=== PATIENT | male | born 1970 ===

== ENCOUNTER 2017-03-05 00:31 | Inpatient (IN) | payer MEDICAID, OTHER ==
[2017-03-05 00:39] VITALS: O2SAT 97; BMI 25.5
--- NOTE | 2017-03-05 00:53 | ED PDOC ---
Psych Transfer Clearance - Clearance Statement Clearance Statement: Reviewed vital signs, lab results and transfer papers. Patient clinically stable for psychiatric admission.
[2017-03-05] MEDS ORDERED: DiphenhydrAMINE 50 mg/ml Inj IM PRN (01:32)
[2017-03-05] MEDS ORDERED: Alum-Mag Hydrox-Simethicone Susp (30 mL) PO PRN (01:32)
[2017-03-05] MEDS ORDERED: Magnesium Hydroxide Susp 30 ml UD PO PRN (01:32)
[2017-03-05 07:14] LABS: CHOLESTEROL 221 mg/dL (0-199)
[2017-03-05] MEDS ORDERED: Trimethobenzamide 200 mg/2 mL Inj IM ONE (10:15)
[2017-03-05 11:37] LABS: T4 12.1 ug/dl (5.5-11.0)
[2017-03-05 11:50] LABS: THYROID STIMULATING HORMONE 1.48 mIU/ML (0.46-4.68)
[2017-03-05] MEDS ORDERED: Trimethobenzamide 200 mg/2 mL Inj IM PRN (13:39)
--- NOTE | 2017-03-05 13:44 | PCM.PSYCH ---
Initial Psychiatric Evaluation - Initial Psychiatric Evaluation Type of Admission: Voluntary Legal Status: Capacity Chief Complaint (in patient's own words): i just need detox Patient's Reaction to Hospitalization: cooperative History of Present Illness and Precipitating Events: pt with opioid dependence. frequently stays at [facility]. he has been using 15-20 bags of heroin iv for for last few weeks. he states he called the 800 number looking to come in for detox. he states when they didn't have a detox bed "i lied so i could come somewhere to get detoxed" he states he is not suicidal and not depressed. he does not want referral to in rehab as he states he needs to return to his job. Current Medications: Active Medications Generic Name Dose Route Start Last Admin Trade Name Freq PRN Reason Stop Dose Admin Acetaminophen 650 mg 03/05/17 01:32 Tylenol 325mg Tab PO Q4 PRN Pain, moderate (4-7) Al Hydrox/Mg Hydrox/Simethicone 30 ml 03/05/17 01:32 Maalox Plus 30 Ml PO Q4 PRN Dyspepsia Clonidine HCl 0.1 mg 03/05/17 16:00 Catapres PO Q6 PUJA Cyclobenzaprine HCl 10 mg 03/05/17 01:38 03/05/17 12:07 Flexeril PO 10 mg Q6 PRN Administration Muscle spasm Diphenhydramine HCl 50 mg 03/05/17 01:32 Benadryl IM Q6 PRN Extrapyramidal S/S Unable PO Diphenhydramine HCl 50 mg 03/05/17 01:32 Benadryl PO Q6 PRN Extrapyramidal Symptoms Folic Acid 1 mg 03/05/17 09:00 03/05/17 12:55 Folic Acid PO Not Given DAILY [facility] Ibuprofen 600 mg 03/05/17 01:58 03/05/17 08:17 Motrin Tab PO 600 mg Q6 PRN Administration Pain, moderate (4-7) Loperamide HCl 2 mg 03/05/17 01:55 Imodium PO QID PRN Diarrhea Lorazepam 2 mg 03/05/17 01:32 Ativan IM Q4 PRN Anxiety/Agitation,Unable PO Lorazepam 2 mg 03/05/17 01:32 Ativan PO Q4 PRN Anxiety/Agitation Lorazepam 1 mg 03/05/17 09:00 03/05/17 12:53 Ativan PO 1 mg TID PUJA Administration Magnesium Hydroxide 30 ml 03/05/17 01:32 Milk Of Magnesia PO HS PRN Constipation Thiamine HCl 100 mg 03/05/17 09:00 03/05/17 12:55 Vitamin B1 Tab PO Not Given DAILY PUJA Trimethobenzamide HCl 200 mg 03/05/17 13:39 Tigan IM Q6 PRN Nausea/Vomiting Past Psychiatric History - Past Psychiatric History Previous Treatment History: Inpatient Prior Professional Help: multiple past admissions to [facility] History of Abuse: declines to discuss History of ETOH/Drug Use: states he uses up to 7 mg xanax, methodone, heroin as per hpi. denies other substance use. History of Family Illness: denies Pertinent Medical Hx (Current Medical&Sleep Prob, Allergies): Allergies Allergy/AdvReac Type Severity Reaction Status Date / Time haloperidol [From Haldol] Allergy SWELLING Verified 03/04/17 19:22 haloperidol lactate Allergy SWELLING Verified 03/04/17 19:22 [From Haldol] Mirtazapine [Remeron] 30 mg PO HS 03/04/17 Review of Systems - Psychiatric Psychiatric: As Per HPI Mental Status Examination - Personal Presentation Personal Presentation: Looks stated age - Affect Affect: Constricted - Motor Activity Motor Activity: Calm - Reliability in Providing Information Reliability in Providing Information: Fair Additional comments: pt uncomfortable secondary to withdrawal symptoms - Speech Speech: Organized - Mood Mood: Depressed, Anxious - Formal Thought Process Formal Thought Process: No Impairment - Obsessions/Compulsions Obsessions: No Compulsions: No - Cognitive Functions Orientation: Person, Place, Situation, Time Sensorium: Alert Attention/Concentration: Attentive Abstract Thinking: [place] Estimate of Intelligence: Average Judgement: Intact, as evidence by: Insight regarding need for hospitalization Memory: Recent intact, as evidence by: Ability to recall events of the day, Remote intact, as evidenced by: Abilit to recall sig. life events - Risk Risk: Suicidal (denies any thoughts/plan or intent), Withdrawal - Strength & Assets Inventory Strength & Assets Inventory: Intelligence, Family support, Employment history DSM 5 DX - DSM 5 DSM 5 Diagnosis: opioid dependence sedative hypnotic dependence mood disorder unspecified - Recommended/Plan of Treatment Treatment Recommendations and Plan of Treatment: admit to 3 for safety and observation gather collateral information provide supportive therapy adjust medications- meds for withdrawal disposition planning- refusing inpt rehab referal hospitalist consult Projected ELOS: 2-3 days Prognosis: fair
--- NOTE | 2017-03-05 16:56 | CP.PCM.CON ---
History of Present Illness - History of Present Illness History of Present Illness: 46 yo male with history of Heroin and Alcohol abuse admitted for detox. Admitted using 15-20 bags of Heroin a day. Last used of Heroin and Alcohol was 2 days ago (Sunday) Review of Systems - Review of Systems All systems: reviewed and no additional remarkable complaints except (aside from those mentioned above, 12 point system review were negative by me) Past Patient History - Infectious Disease Hx of Infectious Diseases: None - Tetanus Immunizations Tetanus Immunization: Unknown - Past Medical History & Family History Past Medical History?: Yes Past Family History: Reviewed and not pertinent - Past Social History Smoking Status: Heavy Smoker > 10 Cigarettes Daily Chewing Tobacco Use: No Cigar Use: No Alcohol: > 2 Drinks/Day Drugs: Opiates - CARDIAC Hx Cardiac Disorders: No Hx Hypertension: No - PULMONARY Hx Respiratory Disorders: No Hx Tuberculosis: No - NEUROLOGICAL Hx Neurological Disorder: No Hx Seizures: No - HEENT Hx HEENT Problems: No - RENAL Hx Chronic Kidney Disease: No - ENDOCRINE/METABOLIC Hx Endocrine Disorders: No - HEMATOLOGICAL/ONCOLOGICAL Hx Blood Disorders: No Hx Human Immunodeficiency Virus (HIV): No - INTEGUMENTARY Hx Dermatological Problems: No - MUSCULOSKELETAL/RHEUMATOLOGICAL Hx Fractures: Yes - GASTROINTESTINAL Hx Gastritis: Yes - GENITOURINARY/GYNECOLOGICAL Hx Sexually Transmitted Disorders: No - PSYCHIATRIC Hx Substance Use: Yes - SURGICAL HISTORY Hx Surgeries: Yes Hx Orthopedic Surgery: Yes (right knee) Other/Comment: right knee surgery. herniated disc - ANESTHESIA Hx Anesthesia: Yes Hx Anesthesia Reactions: No Has any member of the family had a problem w/ anesthesia?: No Meds Allergies/Adverse Reactions: Allergies Allergy/AdvReac Type Severity Reaction Status Date / Time haloperidol [From Haldol] Allergy SWELLING Verified 03/04/17 19:22 haloperidol lactate Allergy SWELLING Verified 03/04/17 19:22 [From Haldol] - Medications Medications: Current Medications Acetaminophen (Tylenol 325mg Tab) 650 mg PO Q4 PRN PRN Reason: Pain, moderate (4-7) Al Hydrox/Mg Hydrox/Simethicone (Maalox Plus 30 Ml) 30 ml PO Q4 PRN PRN Reason: Dyspepsia Clonidine HCl (Catapres) 0.1 mg PO Q6 PUJA Last Admin: 03/05/17 16:30 Dose: 0.1 mg Cyclobenzaprine HCl (Flexeril) 10 mg PO Q6 PRN PRN Reason: Muscle spasm Last Admin: 03/05/17 12:07 Dose: 10 mg Diphenhydramine HCl (Benadryl) 50 mg IM Q6 PRN PRN Reason: Extrapyramidal S/S Unable PO Diphenhydramine HCl (Benadryl) 50 mg PO Q6 PRN PRN Reason: Extrapyramidal Symptoms Folic Acid (Folic Acid) 1 mg PO DAILY [facility] Last Admin: 03/05/17 12:55 Dose: Not Given Ibuprofen (Motrin Tab) 600 mg PO Q6 PRN PRN Reason: Pain, moderate (4-7) Last Admin: 03/05/17 16:29 Dose: 600 mg Loperamide HCl (Imodium) 2 mg PO QID PRN PRN Reason: Diarrhea Lorazepam (Ativan) 2 mg IM Q4 PRN PRN Reason: Anxiety/Agitation,Unable PO Lorazepam (Ativan) 2 mg PO Q4 PRN PRN Reason: Anxiety/Agitation Lorazepam (Ativan) 1 mg PO TID [facility] Last Admin: 03/05/17 16:22 Dose: 1 mg Magnesium Hydroxide (Milk Of Magnesia) 30 ml PO HS PRN PRN Reason: Constipation Ondansetron HCl (Zofran Tab) 4 mg PO Q4 PRN PRN Reason: Nausea/Vomiting Last Admin: 03/05/17 16:22 Dose: 4 mg Thiamine HCl (Vitamin B1 Tab) 100 mg PO DAILY [facility] Last Admin: 03/05/17 12:55 Dose: Not Given Trimethobenzamide HCl (Tigan) 200 mg IM Q6 PRN PRN Reason: Nausea/Vomiting Physical Exam - Constitutional Appears: No Acute Distress - Head Exam Head Exam: ATRAUMATIC - Eye Exam Eye Exam: absent: Scleral icterus - ENT Exam ENT Exam: Mucous Membranes Moist - Neck Exam Neck exam: Negative for: Meningismus - Respiratory Exam Respiratory Exam: absent: Rhonchi, Wheezes, Respiratory Distress - Cardiovascular Exam Cardiovascular Exam: REGULAR RHYTHM, +S1, +S2 - GI/Abdominal Exam GI & Abdominal Exam: Soft. absent: Tenderness - Rectal Exam Rectal Exam: Deferred - Extremities Exam Extremities exam: Negative for: pedal edema - Neurological Exam Neurological exam: Alert, Oriented x3 - Psychiatric Exam Psychiatric exam: Normal Affect - Skin Skin Exam: Dry, Intact Results - Vital Signs Recent Vital Signs: Last Vital Signs Temp 99 F 03/05/17 09:00 Pulse 88 03/05/17 16:30 Resp 16 03/05/17 09:00 BP 130/89 03/05/17 16:30 Pulse Ox 97 03/05/17 00:35 - Labs Labs: Laboratory Results - last 24 hr 03/05/17 03/05/17 06:53 06:57 Triglycerides 105 Cholesterol 221 H LDL Cholesterol Direct 133 H HDL Cholesterol 50 Thyroxine (T4) 12.1 H TSH 3rd Generation 1.48 Assessment & Plan (1) Drug abuse Status: Chronic Comment: psyche is managing (2) Alcohol abuse Status: Chronic Comment: psyche is managing
[2017-03-05 17:23] LABS: RAPID PLASMA REAGIN REACTIVE (NONREACTIVE)
[2017-03-05 18:37] VITALS: RESP 20; TEMP 97.7
[2017-03-05 21:15] VITALS: BP 129/76
--- NOTE | 2017-03-06 10:16 | PCM.PYCHPN ---
Psychiatric Progress Note - Psychiatric Progress Note Patient seen today, length of contact: discussed with team Patient Chief Complaint: i want to leave now Problems Identified/Issues Discussed: see discharge summary for details. Mental Status Examination - Cognitive Function Orientation: Person, Place, Situation, Time - Mood Mood: Depressed, Anxious - Affect Affect: Constricted - Formal Thought Process Formal Thought Process: No Impairment Goal/Treatment Plan - Goal/Treatment Plan Progress Toward Problem(s) and Goals/Treatment Plan: admit to 3np for safety and observation gather collateral information provide supportive therapy adjust medications- meds for withdrawal disposition planning- refusing inpt rehab referal hospitalist consult
--- NOTE | 2017-03-06 10:24 | PCM.PYCHDC ---
Mental Status Examination - Mental Status Examination Orientation: Person, Place, Situation, Time Memory: Intact Mood: Anxious Affect: Broad Speech: Appropriate Attention: WNL Concentration: WNL Association: WNL Fund of Knowledge: WNL Formal Thought Process: No Impairment Description of patient's judgement and insight: fair insight. questionable judgment Psychotic Thoughts and Behaviors: denies a/v hallucinations Suicidal Ideation: No Current Homicidal Ideation?: No Discharge Summary - Discharge Note Reason for Hospitalization: pt states he told er he was suicidal to get admitted for detox Psychiatric History (includes Medical, Family, Personal Hx): history of opioid dependence Laboratory Data: Abnormal Lab Results 03/05/17 03/05/17 06:53 06:57 Thyroxine (T4) 12.1 H TSH 3rd Generation 1.48 RPR Titer 1:4 H RPR Reactive H Consultations:: List each consultation separately and include: 1. Reason for request. 2. Findings. 3. Follow-up Consultations: seen by hospitalist Summary of Hospital Course include:: 1. Description of specific treatment plan utilized for patients during their course of treatmen. 2. Summarize the time- course for resolution of acute symptoms and/or regressed behaviors. 3. Describe issues identified and worked on during hospitalization. 4. Describe medication utilized. 5. Describe medical problems identified and treated. 6. Reassessment of suicide risk Summary of Hospital Course: pt with opioid dependence. frequently stays at [facility]. he has been using 15-20 bags of heroin iv for for last few weeks. he states he called the 800 number looking to come in for detox. he states when they didn't have a detox bed "i lied so i could come somewhere to get detoxed" he states he is not suicidal and not depressed. he does not want referral to in rehab as he states he needs to return to his job. hospital course: pt admitted to [facility] and oriented to the unit. pt started on medication to help with withdrawal from opioids. he reported to the treatment team that he lied about being suicidal. the patient decided he no longer wanted detox. he asked to leave the hospital. he stated he did not want follow up. he was denying suicidal or homicidal thoughts at the time of discharge. - Final Diagnosis (DSM 5) Condition upon Discharge: FAIR DSM 5: opioid dependence in withdrawal Disposition: HOME/ ROUTINE Follow-up Treatment Plan: do not use alcohol, tobacco or other illicit substances call 911 if any suicidal or homicidal thoughts - Smoking Cessation Smoking Cessation Medication prescribed: No Reason for not providing: declined - Antipsychotic Medications Pt discharged on 2 or more routine antipsychotic medications: No
[2017-03-06 10:47] VITALS: PULSE 0
== END 2017-03-06 14:10 | disposition home or self-care (01) | DRG 745 ==
LOC: H.ER 00:31 → H.PSYCH 00:40
PROVIDERS: ADMIT Psychiatry & Neurology Psychiatry; ATTEND Psychiatry & Neurology Psychiatry
PROC: HZ52ZZZ Individual Psychotherapy for Substance Abuse Treatment, Cognitive-Behavioral (ICD-10-PCS; principal; 2017-03-05)
PROC: GZ58ZZZ Individual Psychotherapy, Cognitive-Behavioral (ICD-10-PCS; 2017-03-05)
PROC: HZ2ZZZZ Detoxification Services for Substance Abuse Treatment (ICD-10-PCS; 2017-03-05)
PROC: GZHZZZZ Group Psychotherapy (ICD-10-PCS; 2017-03-06)
DX: F11.24 Opioid dependence with opioid-induced mood disorder (principal); F13.20 Sedative, hypnotic or anxiolytic dependence, uncomplicated; F10.10 Alcohol abuse, uncomplicated; F17.210 Nicotine dependence, cigarettes, uncomplicated